=== PATIENT | female | born 1945 | race Caucasian/White ===

== ENCOUNTER 2016-12-21 09:42 | Outpatient (CLI) | payer MEDICARE, BC ==
--- NOTE | 2016-12-21 12:12 | RAD ---
LUMBAR SPINE TWO VIEWS: HISTORY: Low back pain. Surgery. Followup. FINDINGS: There are five lumbar type vertebrae. Left pedicle screws and vertical dana are in place at the L5-S 1 level. Severe leftward convex rotator scoliotic curvature of the lower lumbar spine is apparent. Other pedicles are intact. Vertebral body heights are maintained. Grade 1 retrolisthesis at the L 4-L5 level is apparent. There is calcification in the arterial structures. The lap band is partial ly visualized. IMPRESSION: Postoperative changes of the lumbosacral junction with prominent lumbar spondylosis. POS: [place]
== END 2016-12-21 09:43 | disposition home or self-care (01) ==
LOC: TBSIIMAG 09:42
PROVIDERS: ATTEND Neurological Surgery
DX: M47.26 Other spondylosis with radiculopathy, lumbar region (principal); Z98.890 Other specified postprocedural states
CPT/HCPCS: 72100

== ENCOUNTER 2017-02-03 13:46 | Outpatient (CLI) | payer MEDICARE, BC ==
--- NOTE | 2017-02-03 15:14 | RAD ---
TWO VIEWS OF THE LUMBAR SPINE: DATE: 02/03/17. COMPARISON: 12/21/16. HISTORY: Intervertebral disk degeneration, low back pain radiating into the left thigh, prior lumbar spine joyce sriram. FINDINGS: There is significant degenerative levorotoscoliosis of the lumbar spine centered at L3. Left L5 and S1 pedicle screws are present with vertically oriented interlocking rods. Incompletely imaged LAP band present. There is prominent disk space narrowing, degenerative end plate change and osteophyte formation later ally on the right at L2-3, L3-4, and L4-5. There is no evidence for hardware failure. The degree of scoliosis limits assessment for anterolisthesis or retrolisthesis. There is probable 1 .1 cm anterolisthesis of L5 on S1. Mild retrolisthesis at L4-5 is suspected, stable. IMPRESSION: Stable prominent degenerative and postoperative change of the lumbar spine as detailed above. There is significant levorotoscoliosis. POS: [place]
== END 2017-02-03 13:47 | disposition home or self-care (01) ==
LOC: TBSIIMAG 13:46
PROVIDERS: ATTEND Neurological Surgery
DX: M51.36 Other intervertebral disc degeneration, lumbar region (principal); M47.816 Spondylosis without myelopathy or radiculopathy, lumbar region; Z98.890 Other specified postprocedural states
CPT/HCPCS: 72100

== ENCOUNTER 2017-04-28 13:09 | Outpatient (CLI) | payer MEDICARE, BC ==
--- NOTE | 2017-04-28 13:49 | RAD ---
LUMBAR SPINE SERIES TWO VIEWS: History: Back pain. Previous surgery. Comparison: 02-03-17 FINDINGS: There is marked scoliotic change, convex to the left. There are severe degenerative changes with heather ed disc narrowing, particularly at the L3-4, L4-5, and L5-S1 levels. Left unilateral pedicle screws a re seen at L5-S1. IMPRESSION: Stable exam. POS: [facility]
== END 2017-04-28 13:10 | disposition home or self-care (01) ==
LOC: TBSIIMAG 13:09
PROVIDERS: ATTEND Neurological Surgery
DX: M54.16 Radiculopathy, lumbar region (principal)
CPT/HCPCS: 72100

== ENCOUNTER 2018-08-11 10:09 | Outpatient (CLI) | payer MEDICARE, BC ==
--- NOTE | 2018-08-11 12:33 | BD ---
DEXA BONE DENSITY STUDY: HISTORY: Postmenopausal. FINDINGS: BMD (g/cm2) Left Femoral Neck: 0.524 T-Score: -2.9 Total 0.854 T-Score: -9.7 Left Forearm: Ulnar Distal 0.462 T-Score: +0.3 Mid 0.473 T-Score: -2.5 One-third 0.652 T-Score: -0.7 Total 0.500 T-Score: -1.5 Impression: Normal bone mineral density of the left forearm. Osteoporosis of the left femoral neck. POS: [facility]
== END 2018-08-11 10:10 | disposition home or self-care (01) ==
LOC: BICMAMMO 10:09
PROVIDERS: ATTEND Family Medicine
DX: M81.0 Age-related osteoporosis without current pathological fracture (principal); Z78.0 Asymptomatic menopausal state; Z79.52 Long term (current) use of systemic steroids
CPT/HCPCS: 77080

== ENCOUNTER 2019-03-29 09:12 | Outpatient (CLI) | payer MEDICARE, BC ==
--- NOTE | 2019-03-29 09:34 | RAD ---
FOUR VIEWS LUMBAR SPINE: HISTORY: Lumbar radiculopathy. Surgery 2-3 years ago. Back pain. COMPARISON: 04/28/2017. FINDINGS: Five lumbar-type vertebrae. Levorotoscoliosis of the lumbar spine. Left-sided transpedicular screw at L5 and S1 without perihardware lucency. Visualized bony pelvis is unremarkable. Dorsal column stimulator terminates at approximately the T10 and T11 levels. Incidental percutaneous gastric lap band is noted. Atherosclerosis of the aorta is identified. In the neutral lateral projection, there does not appear to be significant spondylolisthesis from L1- L2 through L3-L4. There is suggestion of grade 1 anterolisthesis of L5 upon S1, incompletely evaluated on all 3 lateral projections. Additionally, evaluation of the L4-L5 disc space is limited o n the lateral projections.. There appears to be near complete fusion of the L4-L5 and L5-S1 disc spaces. IMPRESSION: 1. Unilateral left-sided transpedicular screw at L5 and S1, without definite perihardware lucency. 2. Leftward curvature lumbar spine. 3. Probable anterolisthesis of L5 upon S1. Limited evaluation of the L4-L5 level. Transcribed Date/Time: 03/29/2019 9:52 AM
== END 2019-03-29 09:13 | disposition home or self-care (01) ==
LOC: TBSIIMAG 09:12
PROVIDERS: ATTEND Neurological Surgery
DX: M54.16 Radiculopathy, lumbar region (principal); M43.9 Deforming dorsopathy, unspecified; Z98.890 Other specified postprocedural states
CPT/HCPCS: 72110

== ENCOUNTER 2019-08-03 07:20 | Day surgery (SDC) | payer MEDICARE, BC ==
[2019-08-02 13:53] VITALS: BMI 37.8
[2019-08-03] MEDS ORDERED: Iopamidol-M 200 41% 20 ML VIAL ONE (10:14)
--- NOTE | 2019-08-03 10:16 | CT ---
CT lumbar spine with contrast: (CT lumbar myelogram) DATE: 08/03/2019 HISTORY: 74-year-old female with low back pain and lumbar radiculopathy. FINDINGS: LAP-BAND at gastric cardia abuts the ventral surface of the diaphragmatic malcolm at proximal abdominal aorta. Multiple bilateral parapelvic renal cysts should not be mistaken for hydronephrosis. Heavy atherosclerotic calcification of nonaneurysmal abdominal aorta. 5 lumbar-type vertebrae. Levoscoliosis centered at L3-4. Consequently, there is asymmetrically severe right-sided degenerative disc disease and right-sided high-grade neural foraminal stenosis at L3-4 and L4-5, along the concavity of the curvature; and severe left sided degenerative disc disease and h igh-grade left neural foraminal stenosis at L5-S1, along the concavity of the counter curvature. No vertebral body collapse. Dorsal column spinal cord stimulator leads enter the spinal canal at T11- T12, and ascend the thoracic spine. Air bubble present within the ventral aspect of the thecal sac at L2 level on supine images. No longer visualized on position prone scan. T12-L1: Normal L1-2: Slight retrolisthesis of L1 on L2. Disc space maintained. Conus medullaris terminates at this l evel. No high-grade neural foraminal stenosis or central stenosis. Mild disc bulge. L2-3: Mild to moderate disc space narrowing. Vacuum disc phenomenon. Mild to moderate right neural fo raminal stenosis. Moderate left neural foraminal stenosis due to left lateral, far lateral, and left paracentral disc-osteophyte complex. Moderate bilateral facet DJD, right worse than left. Diffus e disc bulge. Moderate central spinal canal stenosis. L3-4: Severe degenerative disc disease on the right side with right-sided severe vacuum disc phenomen on, endplate sclerosis, and endplate marginal osteophytes. Moderate right neural foraminal stenosis. Minimal grade 1 anterolisthesis of L3 on L4. Mild left neural foraminal stenosis. Ligamentu m flavum thickening. High-grade bilateral facet DJD. Moderate to severe central spinal canal stenosis. L4-5: Diffuse severe vacuum disc phenomenon and moderate disc space narrowing. Sclerosis and endplate osteophytosis. Slight retrolisthesis of L4 on L5. Prominent used disc bulge. Moderate or severe bilateral neural foraminal stenosis. Midline laminectomy defect. No high-grade central spinal canal o r thecal sac stenosis. Effacement of the right anterior aspect of the epidural space by either herniated disc material or postsurgical scar tissue. Moderate left facet DJD. L5-S1: Unilateral left pedicle screws at L5 and S1. There is lucency around the left S1 pedicle screw . The left L5 pedicle screw traverses the lateral edge of the neural foramen. Because of the concavity of the counter curvature of the scoliosis, there are severe degenerative changes at the pse udoarticulation between the left L5 transverse process and the left sacral ala. Effacement of the left anterior aspect of thecal sac by soft tissue density material, which may be at least partly rela liane to conjoined nerve root as demonstrated on MRI of 10/05/2016, but this could also be herniated disc material or postsurgical scar tissue. Overall degree of thecal sac stenosis is mild. Mild right neural foraminal stenosis. Severe left neural foraminal stenosis. Mild disc space narrowing. Absence of left L5 inferior articular facet. IMPRESSION: 1. High-grade spondylosis, with scoliosis, mid and lower level severe degenerative disc disease, and high-grade facet osteoarthrosis. 2. Left unilateral pedicle screws at L5 and S1. 3. Loosening of left S1 pedicle screw. 4. Status post midline laminectomy at L4-5 and questionably L5-S1. 5. High-grade central spinal canal stenosis at L3-4 and to a lesser degree L4 to-3. 6. Multilevel high-grade neural foraminal stenosis. 7. High-grade degenerative changes at left L5-S1 transverse process-sacral ala pseudarthrosis.
[2019-08-03 10:19] VITALS: BP 146/58; TEMP 99.2
--- NOTE | 2019-08-03 11:38 | RAD ---
Myelogram lumbar: DATE: 08/03/2019 HISTORY: 74-year-old female with low back pain and lumbar radiculopathy. TECHNIQUE: Signed informed consent obtained. Patient placed prone on fluoroscopy table. Skin of lower back prepp ed and draped in usual sterile fashion. 25-gauge needle used to apply buffered lidocaine superficially and deeply. Under brief, intermittent fluoroscopy, spinal needle advanced into spinal c anal and thecal sac at L1-2 from right paramedian interlaminar approach. Upon clear return of CSF, a total of 10 mL Isovue-M 200 injected intrathecally. Needle removed. Patient tolerated procedure wel l. No complications. FINDINGS: 5 lumbar-type vertebrae. Levoscoliosis with apex of curvature at L3-4. Associated severe right-sided degenerative disc disease and right facet DJD at L3-4. Degenerative disc disease also at L2-3 and L5-S1. Left pedicle screws at L5 and S1. Lucency around the left S1 pedicle screw. Dorsal column spin al cord stimulator leads anterior spinal canal at T11-12. Right total hip arthroplasty hardware. Postinjection imaged demonstrate good contrast opacification of thecal sac at upper lumbar spine. IMPRESSION: 1. High-grade lumbar spondylosis with levoscoliosis, severe degenerative disc disease, and severe fac et osteoarthrosis. 2. Unilateral left pedicle screws at L5 and S1. 3. Loosening of left S1 pedicle screw. 5. See separate report of postmyelogram CT
== END 2019-08-03 10:15 | disposition home or self-care (01) ==
LOC: RAD 07:20 → EDSTATUS 08:00 → RAD 10:15
PROVIDERS: ATTEND Neurological Surgery
PROC: B01B1ZZ Fluoroscopy of Spinal Cord using Low Osmolar Contrast (ICD-10-PCS; principal; 2019-08-03)
DX: M47.26 Other spondylosis with radiculopathy, lumbar region (principal); M41.86 Other forms of scoliosis, lumbar region; T84.226A Displacement of internal fixation device of vertebrae, initial encounter; M48.061 Spinal stenosis, lumbar region without neurogenic claudication; I70.0 Atherosclerosis of aorta; N28.1 Cyst of kidney, acquired; G47.30 Sleep apnea, unspecified; I10 Essential (primary) hypertension; F32.9 Major depressive disorder, single episode, unspecified; F41.9 Anxiety disorder, unspecified; E78.5 Hyperlipidemia, unspecified; K21.9 Gastro-esophageal reflux disease without esophagitis; Z87.891 Personal history of nicotine dependence; Z79.818 Long term (current) use of other agents affecting estrogen receptors and estrogen levels; Z79.52 Long term (current) use of systemic steroids; Z79.899 Other long term (current) drug therapy; Z91.048 Other nonmedicinal substance allergy status; Z98.1 Arthrodesis status; Z98.84 Bariatric surgery status
CPT/HCPCS: 62304; 72132; Q9966

== ENCOUNTER 2020-04-16 13:44 | Outpatient (CLI) | payer MEDICARE, BC ==
--- NOTE | 2020-04-16 14:30 | BD ---
EXAM: DEXA bone density examination HISTORY: 75-year-old postmenopausal female for screening COMPARISON: 04/16/2020 FINDINGS: Left distal third forearm--bone mineral density0.656; T score -0.6 Total distal forearm-- bone mineral density 0.520; T score -1.1 Left femoral neck--bone mineral density0.566; T score -2.5 Total proximal left femur--bone mineral density 0.919; T score -0.2 IMPRESSION: Osteoporosis. This patient has a 10 year WHO fracture risk of a major osteoporotic fractu re of 32% and of a hip fracture of 20%.
== END 2020-04-16 13:45 | disposition home or self-care (01) ==
LOC: BICMAMMO 13:44
PROVIDERS: ATTEND Internal Medicine Rheumatology
DX: Z13.820 Encounter for screening for osteoporosis (principal); T38.0X1A Poisoning by glucocorticoids and synthetic analogues, accidental (unintentional), initial encounter; M81.0 Age-related osteoporosis without current pathological fracture
CPT/HCPCS: 77080

== ENCOUNTER 2021-01-14 11:43 | Emergency (ER) | payer MEDICARE, BC ==
[~2021-01-14 11:43] MED LIST: Iopamidol-370 76% 500 ML 1 ML ONE
[2021-01-14] MEDS ORDERED: Acetaminophen 500 MG TAB ONE (12:22)
[2021-01-14 13:07] LABS: ALT (SGPT) 28 U/L (8-55); AST (SGOT) 33 U/L (5-34); Albumin 3.8 g/dL (3.4-4.8); Alkaline Phosphatase 47 U/L (40-110); Anion Gap 16 mmol/L (10-20); BUN (Urea Nitrogen) 21 mg/dL (9.8-20.1); Bilirubin, Total 0.8 mg/dL (0.2-1.2); Calc. Creatinine Clearance 0 mL/min (70-130); Calcium 9.1 mg/dL (7.8-10.44); Carbon Dioxide 23 mmol/L (23-31); Chloride 102 mmol/L (98-107); Globulin 2.6 g/dL (2.4-3.5); Glucose 90 mg/dL (83-110); Lipase 37 U/L (8-78); Potassium 5.3 mmol/L (3.5-5.1); Protein, Total 6.4 g/dL (5.8-8.1); Sodium 136 mmol/L (136-145)
[2021-01-14 13:14] LABS: Bacteria/HPF 4+ HPF (None Seen); Bilirubin Negative (Negative); Blood, Urine 3+ (Negative); Clarity Turbid (Clear); Glucose, Urine (Dipstick) Normal (Negative); Ketone, Urine Negative (Negative); Leukocyte 500 Leu/uL (Negative); Nitrite Negative (Negative); Protein, Urine (Dipstick) 20 mg/dL (Neg-Trace); Specific Gravity, Urine 1.008 (1.002-1.036); Urobilinogen Normal mg/dL (Less than 2); WBC/HPF Greater than 50 HPF (0-3)
[2021-01-14 13:17] LABS: Hemoglobin 13.2 g/dL (12.0-16.0); Mean Corpuscular HGB CONC 33.7 g/dL (32.0-36.0); Mean Corpuscular Hemoglobin 31.4 pg (27.0-31.0); Mean Corpuscular Volume 93.3 fL (78.0-98.0); Mean Platelet Volume 8.8 fL (7.4-10.4); Platelet Count 235 thou/uL (130-400); Red Blood Cell (RBC) Count 4.21 mill/uL (4.20-5.40); White Blood Cell (WBC) Count 9.6 thou/uL (4.8-10.8)
[2021-01-14] MEDS ORDERED: cefTRIAXone\\ROCEPHIN 1 GM VIAL ONE (13:30)
[2021-01-14 13:59] LABS: Band 1 % (5-11); Lymphocytes 3 % (21-51); MDiff Complete? YES; Monocytes 6 % (0-10); Neutrophil 85 % (42-75); Platelet Morphology Comment Appears Adequate; Polychromasia SLIGHT = 2-3 cells (100X) (0-2/hpf); Reactive Lymphocytes 5 % (0-10)
== END 2021-01-14 15:45 | disposition home or self-care (01) ==
LOC: ERS 11:43
DX: N39.0 Urinary tract infection, site not specified (principal); R53.1 Weakness; I10 Essential (primary) hypertension; V00.831A Fall from motorized mobility scooter, initial encounter; Z79.899 Other long term (current) drug therapy
CPT/HCPCS: 70450; 71045; 74177; 80053; 81003; 81015; 83690; 83735; 83880; 84484; 85025; 93005; 96365; J0696; Q9967

== ENCOUNTER 2021-04-18 04:47 | Emergency (ER) | payer MEDICARE, BC ==
[2021-04-18] MEDS ORDERED: Xylocaine 1% w/ Epi 1:100K 10 ML VIAL ONE (05:15)
[2021-04-18] MEDS ORDERED: Bacitracin 1 PK ONE (06:27)
== END 2021-04-18 07:21 | disposition home or self-care (01) ==
LOC: ERS 04:47
DX: S81.012A Laceration without foreign body, left knee, initial encounter (principal); W19.XXXA Unspecified fall, initial encounter; I10 Essential (primary) hypertension
CPT/HCPCS: 12002; 70450; 72125; 72170

== ENCOUNTER 2022-04-26 14:38 | Outpatient (CLI) | payer MEDICARE, BC | END 2022-04-26 14:39 | disposition home or self-care (01) | LOC: SCSRAD 14:38 | PROVIDERS: ATTEND Internal Medicine Rheumatology | DX: M19.011 Primary osteoarthritis, right shoulder (principal); M25.411 Effusion, right shoulder ==

== ENCOUNTER 2022-09-23 11:00 | Outpatient (CLI) | payer MEDICARE, BC | END 2022-09-23 11:01 | disposition home or self-care (01) | LOC: BICMAMMO 11:00 | PROVIDERS: ATTEND Internal Medicine Rheumatology | DX: M81.0 Age-related osteoporosis without current pathological fracture (principal); M85.88 Other specified disorders of bone density and structure, other site | CPT/HCPCS: 77080 ==

== ENCOUNTER 2023-09-26 10:54 | Inpatient (IN) | payer MEDICARE ==
[~2023-09-26 10:54] MED LIST changes: -Iopamidol-370 76% 500 ML 1 ML ONE; +Iopamidol-370 76% 500 ML MDV (1 ML CHARGE) ONE
[2023-09-26] MEDS ORDERED: Sodium Chloride 0.9% 200 ML ONE (11:21)
[2023-09-26] MEDS ORDERED: cefTRIAXone (ROCEPHIN) 2 GM VIAL ONE (11:21)
[2023-09-26] MEDS ORDERED: Azithromycin 500 MG VIAL ONE (11:21)
[2023-09-26 11:25] LABS: #Basophils Less than 0.03 10x3/uL (0.0-0.2); %Basophils 0.2 % (0.0-1.0); %Eosinophils 0.6 % (0.0-10.0); %Lymphocytes 8.6 % (21.0-51.0); %Monocytes 5.8 % (0.0-10.0); %Neutrophils 84.6 % (42.0-75.0); Hematocrit 34.6 % (36.0-47.0); Mean Corpuscular HGB CONC 31.8 g/dL (32.0-36.0); Mean Corpuscular Hemoglobin 26.1 pg (27.0-31.0); Mean Platelet Volume 10.8 fL (7.4-10.4); Platelet Count 278 10x3/uL (130-400); RBC Distribution Width 22.2 % (11.5-14.5); Red Blood Cell (RBC) Count 4.22 mill/uL (4.20-5.40)
[2023-09-26 11:40] LABS: ALT (SGPT) 11 U/L (8-55); AST (SGOT) 23 U/L (5-34); Albumin 2.9 g/dL (3.4-4.8); Alkaline Phosphatase 50 U/L (40-110); Anion Gap 14 mmol/L (10-20); BUN (Urea Nitrogen) 23 mg/dL (9.8-20.1); Bilirubin, Total 0.7 mg/dL (0.2-1.2); Calc. Creatinine Clearance 0 mL/min (70-130); Calcium 8.8 mg/dL (7.8-10.44); Carbon Dioxide 22 mmol/L (23-31); Chloride 106 mmol/L (98-107); Estimated GFR 79; Globulin 2.2 g/dL (2.4-3.5); Glucose 119 mg/dL (83-110); Lipase 26 U/L (8-78); Protein, Total 5.1 g/dL (5.8-8.1); Sodium 138 mmol/L (136-145)
[2023-09-26 12:26] LABS: Troponin I 0.011 ng/mL (< 0.028)
[2023-09-26] MEDS ORDERED: Ketorolac Tromethamine 30 MG (1 mL) VIAL ONE (14:07)
[2023-09-26 15:23] LABS: Lactic Acid 3.9 mmol/L (0.5-2.2)
[2023-09-26] MEDS ORDERED: Acetaminophen 325 MG TAB PO PRN (15:26)
[2023-09-26] MEDS ORDERED: Senokot S 8.6-50 MG TAB PO PRN (15:26)
[2023-09-26] MEDS: Sodium Chloride 0.9% 1,000 ML IV SCH (18:25)
[2023-09-26 19:00] VITALS: BMI 32.0
[2023-09-26 22:02] LABS: Lactic Acid 2.3 mmol/L (0.5-2.2)
[2023-09-26] MEDS: FLUoxetine HCl 20 MG CAP PO SCH (22:02)
[2023-09-26] MEDS: Nortriptyline 10 MG CAP PO SCH (22:03)
[2023-09-26 23:15] LABS: Bilirubin Negative (Negative); Blood, Urine Trace (Negative); CAUTI Indications for Culture Immunosuppressed; Clarity Clear (Clear); Glucose, Urine (Dipstick) Normal (Negative); Ketone, Urine Negative (Negative); Leukocyte 75 Leu/uL (Negative); Nitrite Negative (Negative); Protein, Urine (Dipstick) 30 mg/dL (Neg-Trace); Urobilinogen Normal mg/dL (Less than 2)
[2023-09-26 23:16] LABS: Bacteria/HPF 1+ HPF (None Seen)
[2023-09-26 23:17] LABS: Specific Gravity, Urine Greater than 1.060 (1.002-1.036); Urine Culture Reflex Yes Yes
[2023-09-27] MEDS: HYDROcodone/Acetaminophen 5/325 mg Tablet PO SCH (02:28)
[2023-09-27] MEDS: predniSONE 1 MG TAB PO SCH (08:36)
[2023-09-27] MEDS: Pantoprazole DR 40 MG TAB PO SCH (08:36)
[2023-09-27] MEDS: Enoxaparin 40 MG (0.4 mL) SYRINGE SC SCH (08:37)
[2023-09-27] MEDS: cefTRIAXone\\ROCEPHIN 2 GM in Sodium Chloride 0.9% 100 ML IVPB SCH (11:34)
[2023-09-27] MEDS: Azithromycin 500 MG in Sodium Chloride 0.9% 250 ML 250 ML IVPB SCH (11:35)
[2023-09-27 13:50] LABS: #Basophils Less than 0.03 10x3/uL (0.0-0.2); %Basophils 0.1 % (0.0-1.0); %Eosinophils 0.8 % (0.0-10.0); %Lymphocytes 7.2 % (21.0-51.0); %Monocytes 4.2 % (0.0-10.0); %Neutrophils 87.2 % (42.0-75.0); Hematocrit 33.4 % (36.0-47.0); Hemoglobin 10.3 g/dL (12.0-16.0); Mean Corpuscular HGB CONC 30.8 g/dL (32.0-36.0); Mean Corpuscular Hemoglobin 26.2 pg (27.0-31.0); Mean Platelet Volume 10.5 fL (7.4-10.4); Platelet Count 339 10x3/uL (130-400); RBC Distribution Width 22.5 % (11.5-14.5); Red Blood Cell (RBC) Count 3.93 mill/uL (4.20-5.40)
[2023-09-27 14:09] LABS: Anion Gap 10 mmol/L (10-20); BUN (Urea Nitrogen) 15 mg/dL (9.8-20.1); Calc. Creatinine Clearance 80 mL/min (70-130); Calcium 7.7 mg/dL (7.8-10.44); Carbon Dioxide 21 mmol/L (23-31); Chloride 112 mmol/L (98-107); Estimated GFR 83; Glucose 98 mg/dL (83-110); Potassium 3.4 mmol/L (3.5-5.1); Sodium 140 mmol/L (136-145)
[2023-09-27] MEDS: Folic Acid 1 MG TAB PO SCH (20:45)
[2023-09-27] MEDS: Calcium Carbonate 600 MG TAB PO SCH (20:45)
[2023-09-27] MEDS ORDERED: predniSONE 1 MG TAB PO SCH (21:00)
[2023-09-28] MEDS ORDERED: Fluticasone Propionate Nasal Spray 16 gm Bottle NASAL PRN (09:00)
[2023-09-28] MEDS: Pantoprazole DR 40 MG TAB PO SCH (09:03)
[2023-09-28 10:04] LABS: #Basophils Less than 0.03 10x3/uL (0.0-0.2); %Basophils 0.2 % (0.0-1.0); %Eosinophils 2.1 % (0.0-10.0); %Lymphocytes 15.6 % (21.0-51.0); %Monocytes 7.8 % (0.0-10.0); %Neutrophils 73.9 % (42.0-75.0); Hematocrit 32.1 % (36.0-47.0); Hemoglobin 9.9 g/dL (12.0-16.0); Mean Corpuscular HGB CONC 30.8 g/dL (32.0-36.0); Mean Corpuscular Hemoglobin 25.6 pg (27.0-31.0); Mean Corpuscular Volume 82.9 fL (78.0-98.0); Mean Platelet Volume 10.2 fL (7.4-10.4); Platelet Count 390 10x3/uL (130-400); RBC Distribution Width 22.4 % (11.5-14.5); Red Blood Cell (RBC) Count 3.87 mill/uL (4.20-5.40)
[2023-09-28 10:18] LABS: Anion Gap 9 mmol/L (10-20); BUN (Urea Nitrogen) 13 mg/dL (9.8-20.1); Calc. Creatinine Clearance 81 mL/min (70-130); Calcium 8.4 mg/dL (7.8-10.44); Carbon Dioxide 25 mmol/L (23-31); Chloride 112 mmol/L (98-107); Estimated GFR 85; Glucose 104 mg/dL (83-110); Potassium 3.8 mmol/L (3.5-5.1); Sodium 142 mmol/L (136-145)
[2023-09-28 12:08] VITALS: BP 147/77; TEMP 97.8
[2023-10-04] MEDS ORDERED: Methotrexate Sodium/PF 50 MG (2 mL) VIAL SC SCH (09:00)
== END 2023-09-28 14:45 | disposition home or self-care (01) | DRG 194 ==
LOC: ERS 10:54 → T4-A 15:04
PROVIDERS: ADMIT Hospitalist; ATTEND Internal Medicine
DX: J18.9 Pneumonia, unspecified organism (principal); D84.9 Immunodeficiency, unspecified; E87.20 Acidosis, unspecified; E87.6 Hypokalemia; M35.3 Polymyalgia rheumatica; I10 Essential (primary) hypertension; K21.9 Gastro-esophageal reflux disease without esophagitis; F41.8 Other specified anxiety disorders; Z88.8 Allergy status to other drugs, medicaments and biological substances; Z79.899 Other long term (current) drug therapy; Z79.4 Long term (current) use of insulin; Z98.890 Other specified postprocedural states
CPT/HCPCS: 36415; 36416; 71045; 71275; 80048; 80053; 81001; 83605; 83690; 84484; 85025; 85379; 87040; 87070; 87086; 87205; 93005; 96361; 96365; 96367; 96375; J0456; J0696; J1650; J1885; J3490; J7050; J7512; Q9967